=== PATIENT | female | born 1960 | race Caucasian/White ===

== ENCOUNTER → 2020-03-02 | Day surgery (SDC) | payer OTHER ==
[~2020-03-02] MED LIST: ATORVASTATIN CA20 MG PO; CALTRATE 600 +1 EACH PO; IBU600 MG PO; LEVOTHYROXINE112 MCG PO
== END | disposition home or self-care (01) ==
LOC: OR 06:14
PROVIDERS: Internal Medicine Gastroenterology
PROC: 0DBP8ZX Excision of Rectum, Via Natural or Artificial Opening Endoscopic, Diagnostic (ICD-10-PCS; 2020-03-02)
PROC: 0DBB8ZX Excision of Ileum, Via Natural or Artificial Opening Endoscopic, Diagnostic (ICD-10-PCS; principal; 2020-03-02 09:30)
DX: Z12.11 Encounter for screening for malignant neoplasm of colon (principal); K63.3 Ulcer of intestine; K52.9 Noninfective gastroenteritis and colitis, unspecified; K62.1 Rectal polyp; K64.1 Second degree hemorrhoids; E03.9 Hypothyroidism, unspecified; Z79.899 Other long term (current) drug therapy; Z20.828 Contact with and (suspected) exposure to other viral communicable diseases
CPT/HCPCS: J2001; J2704; J7040